=== PATIENT | female | born 1965 | race Caucasian/White ===

== ENCOUNTER 2024-06-11 13:00 | Outpatient (CLI) | payer OTHER | END 2024-06-11 13:01 | disposition home or self-care (01) | LOC: MRI 13:00 | PROVIDERS: ATTEND Orthopaedic Surgery | DX: S83.222A Peripheral tear of medial meniscus, current injury, left knee, initial encounter (principal); S83.232A Complex tear of medial meniscus, current injury, left knee, initial encounter; M25.462 Effusion, left knee ==